=== PATIENT | male | born 1935 | race Caucasian/White ===

== ENCOUNTER 2019-10-03 12:22 | Observation (INO) | payer MEDICARE, BC ==
[~2019-10-03] VITALS: Ht 177.8 cm; Wt 78.2 kg
[~2019-10-03 12:22] MED LIST: ASPI81TA52 PO; ATOR10TA PO; CARV3.12 PO; LISI2.5T2 PO; RABE20TA25 PO; TICA90TA PO
[2019-10-03 12:46] LABS: BASOPHILS # (AUTO) 0.1 X10'3 (0-0.2); BASOPHILS % (AUTO) 0.7 % (0-1); EOSINOPHILS # (AUTO) 0.2 X10'3 (0-0.9); EOSINOPHILS % (AUTO) 1.9 % (0-6); HEMATOCRIT 44.3 % (42.0-52.0); LYMPHOCYTES # (AUTO) 2.4 X10'3 (1.1-4.8); LYMPHOCYTES % (AUTO) 26.9 % (21-51); MEAN CORPUSCULAR HEMOGLOBIN 32.5 PG (27.0-31.0); MEAN CORPUSCULAR HGB CONC 33.9 g/dL (33.0-36.5); MEAN PLATELET VOLUME 7.4 FL (7.4-10.4); MONOCYTES % (AUTO) 10.7 % (2-12); NEUTROPHILS # (AUTO) 5.4 X10'3 (1.8-7.7); NEUTROPHILS % (AUTO) 59.8 % (42-75); PLATELET COUNT 355 X10'3 (140-440); RED BLOOD COUNT 4.62 X10'6 (4.70-6.10); RED CELL DISTRIBUTION WIDTH 12.6 % (11.5-14.5)
[2019-10-03 12:55] LABS: ALANINE AMINOTRANSFERASE 19 U/L (12-78); ALBUMIN 3.4 G/DL (3.4-5.0); ALKALINE PHOSPHATASE 65 IU/L (46-116); ANION GAP 6 (8-16); ASPARTATE AMINO TRANSFERASE 13 U/L (10-37); BILIRUBIN,TOTAL 0.6 MG/DL (0.1-1.0); BLOOD UREA NITROGEN 21 MG/DL (7-18); BUN/CREATININE RATIO 15.1 (5.4-32.0); CALCIUM 8.9 MG/DL (8.5-10.1); CHLORIDE 105 MMOL/L (99-107); CREATININE 1.39 MG/DL (0.60-1.10); GLUCOSE 107 MG/DL (70-104); POTASSIUM 4.7 MMOL/L (3.5-5.1); SODIUM 140 MMOL/L (135-145); TOTAL CARBON DIOXIDE 29.5 MMOL/L (24-32); TOTAL PROTEIN 6.7 G/DL (6.4-8.2); eGFR 49 ML/MIN
[2019-10-03] MEDS ORDERED: morphine 2 MG/ML inj. syringe IV PRN ×2 (13:10)
[2019-10-03] MEDS ORDERED: acetaminophen 325mg tablet PO PRN ×2 (13:10)
[2019-10-03] MEDS ORDERED: ondansetron/PF 4mg/2ml inj IV PRN (13:10)
[2019-10-03] MEDS ORDERED: nitroGLYCERIN 0.4mg SUBLingual tab SL PRN (13:10)
[2019-10-03] MEDS ORDERED: HYDROcodone/acetaminophen 5mg/325mg tablet PO PRN (13:10)
[2019-10-03] MEDS ORDERED: mag hydrox/Alum hydrox/simeth 30ml oral suspension PO PRN (13:10)
[2019-10-03] MEDS ORDERED: magnesium hydroxide 30ml (MOM) UD suspension PO PRN (13:10)
--- NOTE | 2019-10-03 17:15 | NUR ---
Patient in room PCU 3015. I have received report from SHELBY Goss and had the opportunity to ask questions and assume patient care.
[2019-10-03 17:24] VITALS: BP 158/62
--- NOTE | 2019-10-03 18:12 | NUR ---
Problems reprioritized. Patient report given, questions answered & plan of care reviewed with SHELBY Norwood.
--- NOTE | 2019-10-03 18:15 | NUR ---
Patient in room PCU 3015. I have received report from SHELBY Pendleton and had the opportunity to ask questions and assume patient care.
[2019-10-03] MEDS: normal saline 1000ml 1,000 ML IV SCH (19:56)
[2019-10-03 20:02] VITALS: BP 144/63
[2019-10-03] MEDS: metoprolol tartrate 25mg tablet PO SCH (20:03)
[2019-10-03 20:26] VITALS: BP 129/60
[2019-10-03 22:52] VITALS: BP 110/50
[2019-10-04] VITALS (9 sets, daily range): BP systolic 111–174; BP diastolic 60–85
[2019-10-04 01:34] LABS: BASOPHILS # (AUTO) 0.1 X10'3 (0-0.2); EOSINOPHILS # (AUTO) 0.3 X10'3 (0-0.9); HEMOGLOBIN 13.5 g/dl (14.0-17.9); WHITE BLOOD COUNT 10.5 X10'3 (4.5-11.0)
[2019-10-04 01:35] LABS: BASOPHILS % (AUTO) 1.2 % (0-1); EOSINOPHILS % (AUTO) 3.1 % (0-6); HEMATOCRIT 39.9 % (42.0-52.0); LYMPHOCYTES # (AUTO) 3.8 X10'3 (1.1-4.8); LYMPHOCYTES % (AUTO) 36.6 % (21-51); MEAN CORPUSCULAR HEMOGLOBIN 32.8 PG (27.0-31.0); MEAN CORPUSCULAR HGB CONC 33.9 g/dL (33.0-36.5); MEAN CORPUSCULAR VOLUME 96.9 FL (78-98); MEAN PLATELET VOLUME 7.5 FL (7.4-10.4); MONOCYTES # (AUTO) 1.2 X10'3 (0-0.9); NEUTROPHILS % (AUTO) 48.1 % (42-75); PLATELET COUNT 288 X10'3 (140-440); RED BLOOD COUNT 4.12 X10'6 (4.70-6.10)
[2019-10-04 01:45] LABS: ANION GAP 7 (8-16); BLOOD UREA NITROGEN 22 MG/DL (7-18); CALCIUM 8.1 MG/DL (8.5-10.1); CHLORIDE 107 MMOL/L (99-107); CHOL/HDL RATIO 4.9 (0.00-4.99); CHOLESTEROL 233 MG/DL (0-200); CREATININE 1.16 MG/DL (0.60-1.10); GLUCOSE 93 MG/DL (70-104); HDL CHOLESTEROL 48 MG/DL (35-60); LDL CHOLESTEROL 148 MG/DL (50-100); POTASSIUM 3.9 MMOL/L (3.5-5.1); SODIUM 140 MMOL/L (135-145); TOTAL CARBON DIOXIDE 26.3 MMOL/L (24-32); TRIGLYCERIDES 231 MG/DL (20-135); eGFR 60 ML/MIN
[2019-10-04] MEDS: normal saline 1000ml 1,000 ML IV SCH ×2 (04:51→21:04)
--- NOTE | 2019-10-04 06:30 | NUR ---
Patient in room PCU 3015. I have received report from Enam RYAN and had the opportunity to ask questions and assume patient care. Patient awake in bed and offers no complaints. All immediate needs met at this time.
--- NOTE | 2019-10-04 06:31 | NUR ---
Patient in room PCU 3015. I have received report from Enma RYAN and had the opportunity to ask questions and assume patient care. Patient alert on transfer of care. all current needs met
[2019-10-04] MEDS ORDERED: enoxaparin 40mg/0.4ml syringe SUBCUT SCH (08:00)
[2019-10-04] MEDS: metoprolol tartrate 25mg tablet PO SCH ×2 (08:00→20:00)
[2019-10-04] MEDS ORDERED: atorvastatin 20mg tablet PO SCH (12:05)
[2019-10-04] MEDS ORDERED: atorvastatin 20mg tablet ONE (13:15)
[2019-10-04] MEDS: aspirin 81mg tablet.DR PO SCH (13:23)
[2019-10-04] MEDS ORDERED: midazolam 2 mg/2 ml injection ONE (17:25)
[2019-10-04] MEDS ORDERED: fentaNYL/PF 50MCG/1 ML 2ML syringe ONE (17:25)
[2019-10-04] MEDS ORDERED: LIDOcaine 1% (10mg/ml)w/preservative injection 20ml MDV ONE (17:25)
[2019-10-04] MEDS ORDERED: iohexol 350MG/ML 100ml bottle IV ONE (17:26)
[2019-10-04] MEDS ORDERED: verapamil 2.5 mg/ml inj IV ONE (17:27)
[2019-10-04] MEDS ORDERED: nitroGLYCERIN-Tridil 50MG/D5W 250 ML IV ONE (17:27)
[2019-10-04] MEDS ORDERED: heparin 1,000unit/ml 10ml vial 10 ML ONE (17:28)
--- NOTE | 2019-10-04 17:57 | NUR ---
[place] documentation: I have reviewed and agree with all interventions, assessments performed and documented by Alisia RYAN. [place] Medication Administration: For this medication-pass time frame, all medication were reviewed, dispensed, administered and documented per hospital policy by SHELBY Crump.
--- NOTE | 2019-10-04 18:22 | NUR ---
Problems reprioritized. Patient report given, questions answered & plan of care reviewed with Enma RYAN. Patient stable at transfer of care.
[2019-10-04] MEDS ORDERED: HYDROcodone/acetaminophen 10/325mg tab PO PRN (18:45)
[2019-10-04] MEDS ORDERED: proCHLORperazine 10 MG/2 ml inj IV PRN (18:45)
[2019-10-04] MEDS ORDERED: OXAZEpam 15mg capsule PO PRN (18:45)
--- NOTE | 2019-10-04 23:44 | NUR ---
Sent to [facility] PAGER ID: [phone] MESSAGE: ROOM 3015A Jean Bejarano: Patient BP 174/85 HR 57 lowest 54. Metoprolol 25 mg tab ordered and held. Please advise. Thank you, Enma
--- NOTE | 2019-10-04 23:45 | NUR ---
Patient in room PCU 3015. I have received report from SHELBY Rao and had the opportunity to ask questions and assume patient care.
[2019-10-04] MEDS ORDERED: hydrALAZINE 20mg/ml inj. IV PRN (23:50)
[2019-10-05 00:11] VITALS: BP 168/78
[2019-10-05 05:33] LABS: ANION GAP 6 (8-16); BLOOD UREA NITROGEN 18 MG/DL (7-18); BUN/CREATININE RATIO 17.6 (5.4-32.0); CALCIUM 8.6 MG/DL (8.5-10.1); CHLORIDE 108 MMOL/L (99-107); CHOL/HDL RATIO 4.9 (0.00-4.99); CHOLESTEROL 237 MG/DL (0-200); CREATININE 1.02 MG/DL (0.60-1.10); GLUCOSE 94 MG/DL (70-104); HDL CHOLESTEROL 48 MG/DL (35-60); LDL CHOLESTEROL 158 MG/DL (50-100); POTASSIUM 4.2 MMOL/L (3.5-5.1); SODIUM 141 MMOL/L (135-145); TOTAL CARBON DIOXIDE 27.1 MMOL/L (24-32); TRIGLYCERIDES 190 MG/DL (20-135); eGFR 70 ML/MIN
[2019-10-05 05:47] LABS: BASOPHILS # (AUTO) 0.1 X10'3 (0-0.2); BASOPHILS % (AUTO) 0.7 % (0-1); EOSINOPHILS # (AUTO) 0.3 X10'3 (0-0.9); EOSINOPHILS % (AUTO) 2.8 % (0-6); HEMATOCRIT 42.5 % (42.0-52.0); HEMOGLOBIN 14.4 g/dl (14.0-17.9); LYMPHOCYTES # (AUTO) 2.5 X10'3 (1.1-4.8); LYMPHOCYTES % (AUTO) 24.3 % (21-51); MEAN CORPUSCULAR HEMOGLOBIN 32.7 PG (27.0-31.0); MEAN CORPUSCULAR HGB CONC 33.9 g/dL (33.0-36.5); MEAN CORPUSCULAR VOLUME 96.5 FL (78-98); MEAN PLATELET VOLUME 7.6 FL (7.4-10.4); MONOCYTES # (AUTO) 1.1 X10'3 (0-0.9); NEUTROPHILS # (AUTO) 6.4 X10'3 (1.8-7.7); NEUTROPHILS % (AUTO) 61.2 % (42-75); PLATELET COUNT 275 X10'3 (140-440); RED BLOOD COUNT 4.41 X10'6 (4.70-6.10); RED CELL DISTRIBUTION WIDTH 12.8 % (11.5-14.5); WHITE BLOOD COUNT 10.5 X10'3 (4.5-11.0)
[2019-10-05] MEDS ORDERED: normal saline 1000ml 1,000 ML IV SCH (06:15)
--- NOTE | 2019-10-05 06:15 | NUR ---
Stopped normal saline per slab worker order. However, after speaking to MADISYN Rao she educated me that a standing order should still be ran if ordered. Madisyn Rao will restart NS at 100 mL/hr.
--- NOTE | 2019-10-05 06:16 | NUR ---
Patient in room PCU 3015. I have received report from Madisyn Rao and had the opportunity to ask questions and assume patient care.
--- NOTE | 2019-10-05 06:20 | NUR ---
Patient in room PCU 3015. I have received report from Enma RYAN and had the opportunity to ask questions and assume patient care. Patient awake in bed. Offers no complaints. All immediate needs met at this time.
[2019-10-05 07:00] VITALS: BP 143/65
[2019-10-05] MEDS ORDERED: atorvastatin 20mg tablet PO SCH (08:00)
[2019-10-05] MEDS ORDERED: NITR0.4T51 SL (08:28)
[2019-10-05] MEDS ORDERED: ATOR20TA66 PO (08:28)
[2019-10-05] MEDS ORDERED: METO25TA6 PO (08:28)
--- NOTE | 2019-10-05 08:40 | NUR ---
Paged Dr. Goodson: PAGER ID: [phone] MESSAGE: RE: Jean Bejarano [id number]. patient has 25 mg metoprolol ordered BID. D/C is for 12.5 BID. Do you want him to get that dose this morning before discharge? Maira [phone]
[2019-10-05] MEDS: aspirin 81mg tablet.DR PO SCH (09:09)
--- NOTE | 2019-10-05 11:00 | NUR ---
Patient stable for discharge per MD orders. All discharge instructions reviewed with patient and all questions answered. Patient to follow up with PCP in 1 week. Discharge medications sent to [facility]. Patient did not have any belongings with him except for cellular phone and embroiderer. PIV x 2 discontinued - cannulas intact. Telemetry monitoring discontinued. Patient ambulated with no assistance to lobby, accompanied by PCT.
--- NOTE | 2019-10-06 11:13 | NUR ---
Case management DC follow up: LM/VM re post DC status, questions, concerns
== END 2019-10-05 11:00 | disposition home or self-care (01) ==
LOC: ER 12:23 → ED HOLD 13:08 → EDBEDREQ 16:10 → PCU 3S 16:50
PROVIDERS: ADMIT Internal Medicine; ATTEND Internal Medicine
DX: I25.110 Atherosclerotic heart disease of native coronary artery with unstable angina pectoris (principal); R42 Dizziness and giddiness; E78.5 Hyperlipidemia, unspecified; I25.2 Old myocardial infarction; E78.00 Pure hypercholesterolemia, unspecified; I10 Essential (primary) hypertension; N17.9 Acute kidney failure, unspecified; I45.10 Unspecified right bundle-branch block; Z85.46 Personal history of malignant neoplasm of prostate; Z87.891 Personal history of nicotine dependence; Z90.79 Acquired absence of other genital organ(s); Z95.5 Presence of coronary angioplasty implant and graft; Z79.82 Long term (current) use of aspirin; Z79.899 Other long term (current) drug therapy
CPT/HCPCS: 36415; 71045; 80048; 80053; 80061; 83880; 84484; 85025; 85379; 87081; 93005; 93306; 93458; 96361; 96374; 99285; C1760; C1769; C1894; G0378; J0360; J1644; J2001; J2250; J3010; J7030; Q9967; 99152; 99153; A4620; A5120; A6258; J3490